=== PATIENT | female | born 1935 | race Caucasian/White ===

== ENCOUNTER 2016-12-26 18:37 | Emergency (ER) | payer MEDICARE ==
[~2016-12-26] VITALS: Ht 170.2 cm; Wt 87.0 kg
[~2016-12-26 18:37] MED LIST: ACET-1757 PO; ALLO100T30 PO; ALPR0.25 PO; AMIT10TA PO; AMOX1TAB64 PO; APIX2.5T PO; APIX5TAB PO; AREDS 2 PO; BACL-19 PO; BIFI4CAP PO; BIMA2.5D LEFTEYE; BRIN10DR LEFTEYE; CALC-138 PO; CARV3.122 PO; CARV6.252 PO; CEFD300C2 PO; COLC0.6T37 PO; COLE5PAC3 PO; DOCU-144 PO; DORZ10DR3 LEFTEYE; Doxycycline Hyclate PO; ERYT1OIN5 EACHEYE; ESTR1TAB17 PO; FERR324T5 PO; GABA600T2 PO; HYDR-3138 PO; HYDR-3240 PO; LACT1CAP15 PO; LANAPROST RIGHTEYE; LEVO125T5 PO; MAGN71.5 PO; OXYC1TAB7 PO; OXYC5TAB3 PO; OXYM5TAB PO; POLY17PO3 PO; POLY17PO5 PO; POTA10TA11 PO; POTA20TA37 PO; PRED20TA PO; PRED5TAB PO; PRED5TAB19 PO; SPIR25TA3 PO; SULF1TAB24 PO; TORS20TA PO; TRAM-28 PO; TRAM50TA2 PO; VITA400C40 PO
[2016-12-26] MEDS ORDERED: METHYLNALTREXONE 12 MG/0.6 ML SQ ONE (19:00)
[2016-12-27] MEDS ORDERED: MAGNESIUM CITRATE 300ML ORAL SOL PO ONE (00:30)
[2016-12-27] MEDS ORDERED: MAGNESIUM CITRATE 300ML ORAL SOL ONE (00:41)
[2016-12-27 01:01] VITALS: BP 126/66
== END 2016-12-27 01:04 | disposition home or self-care (01) ==
LOC: ED 19:15
DX: K59.00 Constipation, unspecified (principal); I10 Essential (primary) hypertension; K21.9 Gastro-esophageal reflux disease without esophagitis; I48.91 Unspecified atrial fibrillation; Z90.49 Acquired absence of other specified parts of digestive tract; Z90.710 Acquired absence of both cervix and uterus; Z90.10 Acquired absence of unspecified breast and nipple; Z88.1 Allergy status to other antibiotic agents; Z88.8 Allergy status to other drugs, medicaments and biological substances
CPT/HCPCS: 74020; 96372

== ENCOUNTER 2017-01-30 14:32 | Emergency (ER) | payer MEDICARE ==
[~2017-01-30] VITALS: Ht 170.2 cm; Wt 88.6 kg
[~2017-01-30 14:32] MED LIST changes: -CEFD300C2 PO; +CEFD300C37 PO
[2017-01-30 16:05] LABS: RAPID INFLUENZA A Negative (Negative); RAPID INFLUENZA B Negative (Negative)
[2017-01-30 16:34] LABS: BLOOD UREA NITROGEN 20 mg/dL (7-18)
[2017-01-30 16:42] LABS: IS PT STATUS REG ER OR PRE ER? YES
[2017-01-30 19:56] VITALS: BP 140/72
== END 2017-01-30 20:40 | disposition home or self-care (01) ==
LOC: ED 20:24
DX: R06.00 Dyspnea, unspecified (principal); R61 Generalized hyperhidrosis; I11.0 Hypertensive heart disease with heart failure; I50.9 Heart failure, unspecified; I25.10 Atherosclerotic heart disease of native coronary artery without angina pectoris; E03.9 Hypothyroidism, unspecified; Z90.49 Acquired absence of other specified parts of digestive tract; Z90.710 Acquired absence of both cervix and uterus; Z88.6 Allergy status to analgesic agent; Z88.1 Allergy status to other antibiotic agents; Z88.8 Allergy status to other drugs, medicaments and biological substances
CPT/HCPCS: 36415; 71020; 71275; 80048; 82040; 83605; 83880; 84145; 84484; 85025; 87040; 87400; 93005; 99285

== ENCOUNTER 2017-02-15 02:07 | Inpatient (IN) | payer MEDICARE ==
[~2017-02-15] VITALS: Ht 170.2 cm; Wt 83.0 kg
[2017-02-15] MEDS ORDERED: COLC0.6T37 PO (02:20)
[2017-02-15] MEDS ORDERED: SODIUM CHLORIDE 0.9% 1,000ML IVBOLUS ONE ×2 (02:30→04:00)
[2017-02-15] MEDS ORDERED: SODIUM CHLORIDE FLUSH 10ML SYR IVF ONE (02:30)
[2017-02-15] MEDS ORDERED: ONDANSETRON 2MG/ML, 2ML IVPush ONE (02:30)
[2017-02-15] MEDS ORDERED: FAMOTIDINE 20 MG/2 ML IVP ONE (02:30)
[2017-02-15] MEDS ORDERED: ACETAMINOPHEN 500 MG TABLET ONE (02:42)
[2017-02-15] MEDS ORDERED: FAMOTIDINE 20 MG/2 ML ONE (02:42)
[2017-02-15] MEDS ORDERED: ONDANSETRON 2MG/ML, 2ML ONE (02:42)
[2017-02-15] MEDS ORDERED: ACETAMINOPHEN 500 MG TABLET PO ONE (03:00)
[2017-02-15 03:11] LABS: ASPARTATE AMINO TRANSFERASE 16 U/L (15-37); BLOOD UREA NITROGEN 23 mg/dL (7-18)
[2017-02-15 03:12] LABS: DIFF TOTAL CELLS COUNTED 100 CELL DIFF
[2017-02-15 03:15] LABS: VERIFY COUNTS? YES
[2017-02-15 03:16] LABS: LARGE PLATELETS 1+
[2017-02-15 03:17] LABS: ANISOCYTOSIS 1+; POLYCHROMASIA 1+
[2017-02-15] MEDS ORDERED: AZITHROMYCIN 500 MG in SODIUM CHLORIDE 0.9% 250 ML IV ONE (03:30)
[2017-02-15] MEDS ORDERED: CEFTRIAXONE PMX 1GM/50ML 50 ML IV ONE (03:30)
[2017-02-15] MEDS ORDERED: OMNIPAQUE 350 MG/ML, 100ML BOTTLE ONE (03:39)
[2017-02-15] MEDS ORDERED: SODIUM CHLORIDE 0.9% 1,000 ML IV ONE (04:17)
[2017-02-15] MEDS ORDERED: CEFTRIAXONE PMX 1GM/50ML 50 ML ONE (04:26)
[2017-02-15] MEDS ORDERED: ONDANSETRON 2MG/ML, 2ML IVPush PRN (05:00)
[2017-02-15] MEDS ORDERED: BISACODYL 10 MG SUPP PR PRN (05:00)
[2017-02-15] MEDS ORDERED: GUAIFENESIN/DM 200-20MG, 10ML UDC PO PRN (05:00)
[2017-02-15] MEDS ORDERED: DOCUSATE 100 MG CAPSULE PO PRN (05:00)
[2017-02-15] MEDS ORDERED: POLYETHYLENE GLYCOL 17 GM PACKET PO PRN (05:00)
[2017-02-15] MEDS: BRINZOLAMIDE LEFTEYE SCH ×2 (09:00→21:00)
[2017-02-15] MEDS ORDERED: DORZOLAMIDE OPHTH 2%, 10ML LEFTEYE SCH (09:00)
[2017-02-15] MEDS ORDERED: CARVEDILOL 6.25 MG TABLET PO SCH ×2 (09:00)
[2017-02-15] MEDS ORDERED: CARVEDILOL MC SCH (09:00)
[2017-02-15] MEDS: CEFTRIAXONE PMX 1GM/50ML 50 ML IV SCH ×2 (11:01→23:37)
[2017-02-15] MEDS: SODIUM CHLORIDE FLUSH 3ML SYRINGE IVF SCH ×2 (11:01→21:00)
[2017-02-15] MEDS: TORSEMIDE 20 MG TABLET PO SCH (11:02)
[2017-02-15] MEDS: COLCHICINE 0.6 MG TABLET PO SCH (11:02)
[2017-02-15] MEDS: APIXABAN 5 MG TABLET PO SCH ×2 (11:02→21:11)
[2017-02-15] MEDS: LEVOTHYROXINE 125 MCG TABLET PO SCH (11:02)
[2017-02-15] MEDS: CARVEDILOL 6.25 MG TABLET PO SCH ×2 (11:03→21:12)
[2017-02-15] MEDS: POTASSIUM CHLORIDE 10 MEQ TABLET.ER PO SCH (11:03)
[2017-02-15] MEDS: GABAPENTIN 300 MG CAPSULE PO SCH ×2 (11:03→21:10)
[2017-02-15] MEDS: BACLOFEN 10 MG TABLET PO SCH ×2 (11:03→21:11)
[2017-02-15] MEDS: MAGNESIUM CHLORIDE 64 MG TABLET.DR PO SCH ×2 (11:03→21:10)
[2017-02-15] MEDS: LACTOBACILLUS CHEW TABLET PO SCH (11:03)
[2017-02-15 13:22] VITALS: BP 97/62
[2017-02-15] MEDS: AZITHROMYCIN 500 MG in SODIUM CHLORIDE 0.9% 250 ML IV SCH (14:33)
[2017-02-15 18:10] VITALS: BP 96/60
[2017-02-15 18:30] VITALS: BP 96/60
[2017-02-15] MEDS: DORZOLAMIDE OPHTH 2%, 10ML LEFTEYE SCH (21:00)
[2017-02-15] MEDS ORDERED: TEMPLATE NON-FORMULARY MED. (Bimatoprost (Lumigan) 1 DROP) LEFTEYE SCH (21:00)
[2017-02-15] MEDS ORDERED: LATANOPROST OPHTH 0.005%, 2.5ML RIGHTEYE SCH (21:00)
[2017-02-15] MEDS: AMITRIPTYLINE 10 MG TABLET PO SCH (21:11)
[2017-02-15 21:20] VITALS: BP 107/69
[2017-02-16 00:09] VITALS: BP 112/71
[2017-02-16 05:59] LABS: BLOOD UREA NITROGEN 24 mg/dL (7-18)
[2017-02-16 08:09] VITALS: BP 150/75
[2017-02-16] MEDS: SODIUM CHLORIDE FLUSH 3ML SYRINGE IVF SCH ×2 (08:12→21:00)
[2017-02-16] MEDS: LEVOTHYROXINE 125 MCG TABLET PO SCH (08:12)
[2017-02-16] MEDS: DORZOLAMIDE OPHTH 2%, 10ML LEFTEYE SCH ×2 (08:12→21:00)
[2017-02-16] MEDS: APIXABAN 5 MG TABLET PO SCH ×2 (08:13→20:59)
[2017-02-16] MEDS: BACLOFEN 10 MG TABLET PO SCH ×2 (08:13→20:59)
[2017-02-16] MEDS: LACTOBACILLUS CHEW TABLET PO SCH (08:13)
[2017-02-16] MEDS: POTASSIUM CHLORIDE 10 MEQ TABLET.ER PO SCH (08:13)
[2017-02-16] MEDS: GABAPENTIN 300 MG CAPSULE PO SCH ×2 (08:14→20:59)
[2017-02-16] MEDS: CARVEDILOL 6.25 MG TABLET PO SCH ×2 (08:14→20:59)
[2017-02-16] MEDS: MAGNESIUM CHLORIDE 64 MG TABLET.DR PO SCH ×2 (08:14→20:58)
[2017-02-16] MEDS: TORSEMIDE 20 MG TABLET PO SCH (08:14)
[2017-02-16] MEDS: COLCHICINE 0.6 MG TABLET PO SCH (08:14)
[2017-02-16] MEDS: BRINZOLAMIDE LEFTEYE SCH ×2 (08:17→21:00)
[2017-02-16] MEDS: CEFTRIAXONE PMX 1GM/50ML 50 ML IV SCH ×2 (11:13→23:38)
[2017-02-16] MEDS: HYDROcodone/APAP 5/325 TABLET PO PRN ×3 (11:43→21:00)
[2017-02-16] MEDS: AZITHROMYCIN 500 MG in SODIUM CHLORIDE 0.9% 250 ML IV SCH (13:38)
[2017-02-16 14:00] VITALS: BP 149/78
[2017-02-16 19:39] VITALS: BP 144/74
[2017-02-16] MEDS: AMITRIPTYLINE 10 MG TABLET PO SCH (20:59)
[2017-02-16] MEDS: TEMPLATE NON-FORMULARY MED. (Bimatoprost (Lumigan) 1 DROP) LEFTEYE SCH (21:00)
[2017-02-16] MEDS: LATANOPROST OPHTH 0.005%, 2.5ML RIGHTEYE SCH (21:00)
[2017-02-17 00:37] VITALS: BP 95/60
[2017-02-17] MEDS: HYDROcodone/APAP 5/325 TABLET PO PRN ×5 (04:46→22:14)
[2017-02-17 07:05] VITALS: BP 109/55
[2017-02-17] MEDS: COLCHICINE 0.6 MG TABLET PO SCH (08:51)
[2017-02-17] MEDS: APIXABAN 5 MG TABLET PO SCH ×2 (08:51→22:13)
[2017-02-17] MEDS: MAGNESIUM CHLORIDE 64 MG TABLET.DR PO SCH ×2 (08:52→22:13)
[2017-02-17] MEDS: LACTOBACILLUS CHEW TABLET PO SCH (08:52)
[2017-02-17] MEDS: TORSEMIDE 20 MG TABLET PO SCH (08:52)
[2017-02-17] MEDS: POTASSIUM CHLORIDE 10 MEQ TABLET.ER PO SCH (08:52)
[2017-02-17] MEDS: GABAPENTIN 300 MG CAPSULE PO SCH ×2 (08:52→22:13)
[2017-02-17] MEDS: CARVEDILOL 6.25 MG TABLET PO SCH ×2 (08:52→22:19)
[2017-02-17] MEDS: LEVOTHYROXINE 125 MCG TABLET PO SCH (08:52)
[2017-02-17] MEDS: BACLOFEN 10 MG TABLET PO SCH ×2 (08:52→22:13)
[2017-02-17] MEDS: SODIUM CHLORIDE FLUSH 3ML SYRINGE IVF SCH ×2 (08:53→21:00)
[2017-02-17] MEDS: BRINZOLAMIDE LEFTEYE SCH ×2 (08:53→21:00)
[2017-02-17] MEDS: DORZOLAMIDE OPHTH 2%, 10ML LEFTEYE SCH ×2 (08:53→21:00)
[2017-02-17] MEDS: CEFTRIAXONE PMX 1GM/50ML 50 ML IV SCH ×2 (12:02→23:30)
[2017-02-17 12:26] VITALS: BP 99/62
[2017-02-17] MEDS: AZITHROMYCIN 500 MG in SODIUM CHLORIDE 0.9% 250 ML IV SCH (14:16)
[2017-02-17 20:00] VITALS: BP 150/79
[2017-02-17] MEDS: TEMPLATE NON-FORMULARY MED. (Bimatoprost (Lumigan) 1 DROP) LEFTEYE SCH (21:00)
[2017-02-17] MEDS: LATANOPROST OPHTH 0.005%, 2.5ML RIGHTEYE SCH (21:00)
[2017-02-17] MEDS: AMITRIPTYLINE 10 MG TABLET PO SCH (22:13)
[2017-02-18 00:51] VITALS: BP 148/66
[2017-02-18] MEDS: HYDROcodone/APAP 5/325 TABLET PO PRN ×6 (03:18→22:45)
[2017-02-18] MEDS ORDERED: CEFTRIAXONE 1,000 MG IM ONE (05:00)
[2017-02-18 07:28] VITALS: BP 157/85
[2017-02-18] MEDS: SODIUM CHLORIDE FLUSH 3ML SYRINGE IVF SCH ×2 (09:00→19:47)
[2017-02-18] MEDS: GABAPENTIN 300 MG CAPSULE PO SCH ×2 (09:00→19:46)
[2017-02-18] MEDS: BRINZOLAMIDE LEFTEYE SCH ×2 (09:00→19:47)
[2017-02-18] MEDS: POTASSIUM CHLORIDE 10 MEQ TABLET.ER PO SCH (09:40)
[2017-02-18] MEDS: CEFDINIR 300 MG CAPSULE PO SCH ×2 (09:40→19:45)
[2017-02-18] MEDS: APIXABAN 5 MG TABLET PO SCH ×2 (09:40→19:46)
[2017-02-18] MEDS: LACTOBACILLUS CHEW TABLET PO SCH (09:40)
[2017-02-18] MEDS: MAGNESIUM CHLORIDE 64 MG TABLET.DR PO SCH ×2 (09:40→19:45)
[2017-02-18] MEDS: TORSEMIDE 20 MG TABLET PO SCH (09:40)
[2017-02-18] MEDS: BACLOFEN 10 MG TABLET PO SCH ×2 (09:40→19:46)
[2017-02-18] MEDS: LEVOTHYROXINE 125 MCG TABLET PO SCH (09:40)
[2017-02-18] MEDS: COLCHICINE 0.6 MG TABLET PO SCH (09:41)
[2017-02-18] MEDS: CARVEDILOL 6.25 MG TABLET PO SCH ×2 (09:41→19:46)
[2017-02-18] MEDS: DORZOLAMIDE OPHTH 2%, 10ML LEFTEYE SCH ×2 (09:42→21:00)
[2017-02-18] MEDS: AZITHROMYCIN 500 MG TABLET PO SCH (09:47)
[2017-02-18 12:05] VITALS: BP 125/73
[2017-02-18] MEDS: GUAIFENESIN/DM 200-20MG, 10ML UDC PO PRN ×2 (14:41→19:45)
[2017-02-18 19:21] VITALS: BP 147/72
[2017-02-18] MEDS: AMITRIPTYLINE 10 MG TABLET PO SCH (19:46)
[2017-02-18] MEDS: TEMPLATE NON-FORMULARY MED. (Bimatoprost (Lumigan) 1 DROP) LEFTEYE SCH (19:46)
[2017-02-18] MEDS: LATANOPROST OPHTH 0.005%, 2.5ML RIGHTEYE SCH (19:47)
[2017-02-19] MEDS: HYDROcodone/APAP 5/325 TABLET PO PRN ×3 (01:11→17:13)
[2017-02-19] MEDS: GUAIFENESIN/DM 200-20MG, 10ML UDC PO PRN ×4 (01:11→21:34)
[2017-02-19 01:23] VITALS: BP 144/71
[2017-02-19 07:45] VITALS: BP 143/75
[2017-02-19] MEDS: SODIUM CHLORIDE FLUSH 3ML SYRINGE IVF SCH ×2 (08:04→21:00)
[2017-02-19] MEDS: DORZOLAMIDE OPHTH 2%, 10ML LEFTEYE SCH ×2 (09:00→21:00)
[2017-02-19] MEDS: AZITHROMYCIN 500 MG TABLET PO SCH (09:00)
[2017-02-19] MEDS: BRINZOLAMIDE LEFTEYE SCH ×2 (09:00→21:00)
[2017-02-19] MEDS: COLCHICINE 0.6 MG TABLET PO SCH (09:51)
[2017-02-19] MEDS: POTASSIUM CHLORIDE 10 MEQ TABLET.ER PO SCH (09:52)
[2017-02-19] MEDS: TORSEMIDE 20 MG TABLET PO SCH (09:52)
[2017-02-19] MEDS: BACLOFEN 10 MG TABLET PO SCH ×2 (09:52→21:19)
[2017-02-19] MEDS: APIXABAN 5 MG TABLET PO SCH ×2 (09:52→21:19)
[2017-02-19] MEDS: LACTOBACILLUS CHEW TABLET PO SCH (09:52)
[2017-02-19] MEDS: GABAPENTIN 300 MG CAPSULE PO SCH ×2 (09:52→21:00)
[2017-02-19] MEDS: MAGNESIUM CHLORIDE 64 MG TABLET.DR PO SCH ×2 (09:53→21:18)
[2017-02-19] MEDS: LEVOTHYROXINE 125 MCG TABLET PO SCH (09:53)
[2017-02-19] MEDS: CEFDINIR 300 MG CAPSULE PO SCH ×2 (09:53→21:19)
[2017-02-19 12:52] LABS: BLOOD UREA NITROGEN 17 mg/dL (7-18)
[2017-02-19 12:58] LABS: ASPARTATE AMINO TRANSFERASE 18 U/L (15-37)
[2017-02-19 13:50] VITALS: BP 136/75
[2017-02-19] MEDS ORDERED: POTASSIUM CHLORIDE 20 MEQ TAB.ER.PRT PO ONE (14:30)
[2017-02-19] MEDS: GUAIFENESIN ER 600 MG TABLET PO SCH ×2 (15:35→21:18)
[2017-02-19] MEDS: SPIRONOLACTONE 25 MG TABLET PO SCH (15:35)
[2017-02-19 18:42] VITALS: BP 161/80
[2017-02-19] MEDS: LATANOPROST OPHTH 0.005%, 2.5ML RIGHTEYE SCH (21:00)
[2017-02-19] MEDS: TEMPLATE NON-FORMULARY MED. (Bimatoprost (Lumigan) 1 DROP) LEFTEYE SCH (21:00)
[2017-02-19] MEDS: AMITRIPTYLINE 10 MG TABLET PO SCH (21:19)
[2017-02-20 01:57] VITALS: BP 115/67
[2017-02-20] MEDS: GUAIFENESIN/DM 200-20MG, 10ML UDC PO PRN ×3 (04:53→15:26)
[2017-02-20 06:15] LABS: BLOOD UREA NITROGEN 16 mg/dL (7-18)
[2017-02-20 07:05] VITALS: BP 160/82
[2017-02-20] MEDS: SODIUM CHLORIDE FLUSH 3ML SYRINGE IVF SCH (08:43)
[2017-02-20] MEDS: COLCHICINE 0.6 MG TABLET PO SCH (08:52)
[2017-02-20] MEDS: SPIRONOLACTONE 25 MG TABLET PO SCH (08:52)
[2017-02-20] MEDS: APIXABAN 5 MG TABLET PO SCH (08:52)
[2017-02-20] MEDS: GUAIFENESIN ER 600 MG TABLET PO SCH (08:52)
[2017-02-20] MEDS: CEFDINIR 300 MG CAPSULE PO SCH (08:53)
[2017-02-20] MEDS: BACLOFEN 10 MG TABLET PO SCH (08:53)
[2017-02-20] MEDS: LACTOBACILLUS CHEW TABLET PO SCH (08:53)
[2017-02-20] MEDS: GABAPENTIN 300 MG CAPSULE PO SCH (08:53)
[2017-02-20] MEDS: MAGNESIUM CHLORIDE 64 MG TABLET.DR PO SCH (08:53)
[2017-02-20] MEDS: TORSEMIDE 20 MG TABLET PO SCH (08:53)
[2017-02-20] MEDS: LEVOTHYROXINE 125 MCG TABLET PO SCH (08:54)
[2017-02-20] MEDS: DORZOLAMIDE OPHTH 2%, 10ML LEFTEYE SCH (08:55)
[2017-02-20] MEDS: BRINZOLAMIDE LEFTEYE SCH (08:55)
[2017-02-20] MEDS: AZITHROMYCIN 500 MG TABLET PO SCH (08:57)
[2017-02-20] MEDS: HYDROcodone/APAP 5/325 TABLET PO PRN ×2 (09:01→15:26)
[2017-02-20] MEDS ORDERED: CEFD300C37 PO (16:12)
[2017-02-20] MEDS ORDERED: SPIR25TA PO (16:12)
== END 2017-02-20 17:41 | disposition home health service (06) | DRG 871 ==
LOC: ED 03:57 → EDIP 04:17 → 4EST 07:06
DX: A41.9 Sepsis, unspecified organism (principal); I50.33 Acute on chronic diastolic (congestive) heart failure; J18.9 Pneumonia, unspecified organism; J96.21 Acute and chronic respiratory failure with hypoxia; D68.69 Other thrombophilia; E44.0 Moderate protein-calorie malnutrition; E03.9 Hypothyroidism, unspecified; G62.9 Polyneuropathy, unspecified; K21.9 Gastro-esophageal reflux disease without esophagitis; I11.0 Hypertensive heart disease with heart failure; I27.2 Other secondary pulmonary hypertension; I25.10 Atherosclerotic heart disease of native coronary artery without angina pectoris; D64.9 Anemia, unspecified; H40.9 Unspecified glaucoma; G89.29 Other chronic pain; M10.9 Gout, unspecified; Z66 Do not resuscitate; M54.9 Dorsalgia, unspecified; I48.2 Chronic atrial fibrillation; Z79.01 Long term (current) use of anticoagulants; I71.2 Thoracic aortic aneurysm, without rupture; Z90.13 Acquired absence of bilateral breasts and nipples; Z90.49 Acquired absence of other specified parts of digestive tract; Z90.710 Acquired absence of both cervix and uterus; Z88.8 Allergy status to other drugs, medicaments and biological substances; Z79.52 Long term (current) use of systemic steroids; Z82.49 Family history of ischemic heart disease and other diseases of the circulatory system; Z80.0 Family history of malignant neoplasm of digestive organs; Z68.28 Body mass index [BMI] 28.0-28.9, adult
CPT/HCPCS: 36415; 71010; 74177; 80048; 80053; 81003; 83605; 83690; 83735; 84145; 85025; 85610; 87040; 87324; 89055; 93005; 96374; 96375; J0456; J0696; J2405; Q9967; J7030; J7050; J7512; S0028

== ENCOUNTER → 2017-03-19 | Outpatient (CLI) | payer MEDICARE ==
[~2017-03-19] MED LIST changes: +SPIR25TA PO
== END | disposition home or self-care (01) ==
LOC: RAD 14:00
PROVIDERS: ATTEND Internal Medicine
DX: R07.9 Chest pain, unspecified (principal)
CPT/HCPCS: 71020

== ENCOUNTER 2017-03-22 20:20 | Emergency (ER) | payer MEDICARE ==
[~2017-03-22] VITALS: Ht 170.2 cm; Wt 87.0 kg
[2017-03-22 20:27] VITALS: BP 178/86
[2017-03-22] MEDS ORDERED: BACITRACIN ZINC OINT 500U/GM, 0.9 GM ONE (20:48)
[2017-03-22] MEDS ORDERED: OXYcodone/APAP 5/325MG TABLET ONE (20:48)
[2017-03-22] MEDS ORDERED: SILVER SULF. CRM 1% , 25GM ONE (20:48)
[2017-03-22] MEDS ORDERED: OXYcodone/APAP 5/325MG TABLET PO ONE (21:00)
[2017-03-22] MEDS ORDERED: SILVER SULF. CRM 1% , 25GM TP ONE (21:00)
== END 2017-03-22 21:11 | disposition home or self-care (01) ==
LOC: ED 21:09
DX: T23.122A Burn of first degree of single left finger (nail) except thumb, initial encounter (principal); K21.9 Gastro-esophageal reflux disease without esophagitis; J96.90 Respiratory failure, unspecified, unspecified whether with hypoxia or hypercapnia; E03.9 Hypothyroidism, unspecified; I25.10 Atherosclerotic heart disease of native coronary artery without angina pectoris; Z90.49 Acquired absence of other specified parts of digestive tract; Z90.710 Acquired absence of both cervix and uterus; Z90.10 Acquired absence of unspecified breast and nipple; X10.2XXA Contact with fats and cooking oils, initial encounter; Y93.89 Activity, other specified; Y92.89 Other specified places as the place of occurrence of the external cause; Y99.8 Other external cause status
CPT/HCPCS: 16020

== ENCOUNTER → 2017-03-25 | Outpatient (CLI) | payer MEDICARE | END | disposition home or self-care (01) | LOC: CVU 13:10 | PROVIDERS: ATTEND Podiatrist Foot & Ankle Surgery | DX: I73.9 Peripheral vascular disease, unspecified (principal); I65.23 Occlusion and stenosis of bilateral carotid arteries; I10 Essential (primary) hypertension; I48.91 Unspecified atrial fibrillation | CPT/HCPCS: 93922; 93925 ==

== ENCOUNTER → 2017-06-10 | Outpatient (CLI) | payer MEDICARE ==
[~2017-06-10] MED LIST changes: -HYDR-3138 PO; +HYDR-3237 PO; -TRAM-28 PO; +TRAM-47 PO; -VITA400C40 PO; +VITA400C43 PO
== END | disposition home or self-care (01) ==
LOC: CFH 11:55
PROVIDERS: ATTEND Nurse Practitioner Family
DX: I48.2 Chronic atrial fibrillation (principal)
CPT/HCPCS: 71020

== ENCOUNTER 2017-07-14 18:52 | Inpatient (IN) | payer MEDICARE ==
[~2017-07-14] VITALS: Ht 170.2 cm; Wt 106.0 kg
[2017-07-14] MEDS ORDERED: HYDROmorphone 1 MG/ML, 1ML ONE ×2 (19:17→22:21)
[2017-07-14] MEDS: HYDROmorphone 1 MG/ML, 1ML IVPush PRN ×2 (19:20→22:25)
[2017-07-14] MEDS ORDERED: PLEASE ENTER HEIGHT AND WEIGHT MC SCH (19:30)
[2017-07-14] MEDS ORDERED: ERYTHROMYCIN EYE EACHEYE (19:38)
[2017-07-14 19:58] LABS: BLOOD UREA NITROGEN 21 mg/dL (7-18)
[2017-07-14 20:01] LABS: HEMATOCRIT 30.4 % (34.6-47.8); HEMOGLOBIN 9.6 g/dL (11.7-16.4)
[2017-07-14] MEDS ORDERED: LIDOCAINE 1%, 20ML ONE (21:05)
[2017-07-14] MEDS ORDERED: SODIUM CHLORIDE 0.9% 1,000 ML IV ONE (21:31)
[2017-07-14] MEDS ORDERED: ONDANSETRON 2MG/ML, 2ML IVPush PRN (22:00)
[2017-07-14] MEDS ORDERED: LACTATED RINGERS 1,000 ML IV SCH (22:00)
[2017-07-14] MEDS ORDERED: hydrALAzine 20 MG/ML, 1ML IVPush PRN (22:00)
[2017-07-14] MEDS ORDERED: DOCUSATE 100 MG CAPSULE PO PRN (22:00)
[2017-07-14] MEDS ORDERED: HYDROmorphone 1 MG/ML, 1ML IVPush PRN (22:00)
[2017-07-14] MEDS ORDERED: ACETAMINOPHEN 325 MG TABLET PO PRN (22:00)
[2017-07-14 22:59] VITALS: BP 129/63
[2017-07-14 23:15] VITALS: BP 129/63
[2017-07-15] MEDS: BRINZOLAMIDE LEFTEYE SCH ×3 (00:04→21:00)
[2017-07-15] MEDS: TEMPLATE NON-FORMULARY MED. (Bimatoprost (Lumigan) 1 DROP) LEFTEYE SCH ×2 (00:04→21:00)
[2017-07-15] MEDS: morphine SULFATE 10 MG/ML, 1ML IVPush PRN ×6 (00:18→14:29)
[2017-07-15] MEDS: OXYcodone IR 5MG TABLET PO PRN ×4 (00:18→14:06)
[2017-07-15] MEDS: AMITRIPTYLINE 10 MG TABLET PO SCH ×2 (01:36→21:00)
[2017-07-15] MEDS: GABAPENTIN 300 MG CAPSULE PO SCH ×3 (01:39→21:00)
[2017-07-15 01:58] VITALS: BP 127/56
[2017-07-15 02:39] LABS: PATH.CAST-FLAG NOT PRESENT; SPERM-FLAG NOT PRESENT; SRC-FLAG NOT PRESENT; XTAL-FLAG NOT PRESENT; YLC-FLAG NOT PRESENT
[2017-07-15 06:02] LABS: BLOOD UREA NITROGEN 20 mg/dL (7-18)
[2017-07-15 06:08] LABS: HEMATOCRIT 24.7 % (34.6-47.8); HEMOGLOBIN 7.8 g/dL (11.7-16.4); WHITE BLOOD COUNT 9.9 x10^3/uL (3.4-10)
[2017-07-15 07:10] VITALS: BP 136/61
[2017-07-15] MEDS ORDERED: POTASSIUM CHLORIDE 10 MEQ TABLET.ER PO SCH (09:00)
[2017-07-15] MEDS: COLCHICINE 0.6 MG TABLET PO SCH (09:00)
[2017-07-15] MEDS ORDERED: APIXABAN 5 MG TABLET PO SCH (09:00)
[2017-07-15] MEDS ORDERED: GABAPENTIN 300 MG CAPSULE PO SCH (09:00)
[2017-07-15] MEDS: LACTULOSE 10 GM/15 ML UDC PO SCH ×2 (09:36→21:00)
[2017-07-15] MEDS: BACLOFEN 10 MG TABLET PO SCH ×2 (09:37→21:00)
[2017-07-15] MEDS: TORSEMIDE 20 MG TABLET PO SCH (09:38)
[2017-07-15] MEDS: LEVOTHYROXINE 125 MCG TABLET PO SCH (09:38)
[2017-07-15] MEDS: SPIRONOLACTONE 25 MG TABLET PO SCH (09:39)
[2017-07-15 11:31] LABS: HEMATOCRIT 26.5 % (34.6-47.8); HEMOGLOBIN 8.4 g/dL (11.7-16.4)
[2017-07-15 13:18] VITALS: BP 126/75
[2017-07-15] MEDS ORDERED: BISACODYL 10 MG SUPP PR PRN (14:30)
[2017-07-15] MEDS ORDERED: POLYETHYLENE GLYCOL 17 GM PACKET PO PRN (14:30)
[2017-07-15] MEDS: POLYETHYLENE GLYCOL 17 GM PACKET PO PRN (14:56)
[2017-07-15] MEDS: ONDANSETRON 2MG/ML, 2ML IVPush PRN (18:40)
[2017-07-15 19:52] VITALS: BP 122/72
[2017-07-15] MEDS: ENOXAPARIN 40 MG/0.4 ML SQ SCH (22:05)
[2017-07-16] MEDS: OXYcodone IR 5MG TABLET PO PRN ×2 (00:58→15:15)
[2017-07-16] MEDS: BACLOFEN 10 MG TABLET PO SCH ×4 (00:58→21:15)
[2017-07-16 02:30] VITALS: BP 167/72
[2017-07-16] MEDS: ONDANSETRON 2MG/ML, 2ML IVPush PRN ×3 (02:43→15:12)
[2017-07-16 07:58] VITALS: BP 128/67
[2017-07-16 08:07] LABS: BLOOD UREA NITROGEN 18 mg/dL (7-18)
[2017-07-16 08:13] LABS: HEMATOCRIT 24.3 % (34.6-47.8); HEMOGLOBIN 7.7 g/dL (11.7-16.4); WHITE BLOOD COUNT 15.6 x10^3/uL (3.4-10)
[2017-07-16] MEDS: BRINZOLAMIDE LEFTEYE SCH ×2 (09:00→21:00)
[2017-07-16] MEDS: SPIRONOLACTONE 25 MG TABLET PO SCH (09:00)
[2017-07-16] MEDS: LEVOTHYROXINE 125 MCG TABLET PO SCH (09:00)
[2017-07-16] MEDS: COLCHICINE 0.6 MG TABLET PO SCH (09:00)
[2017-07-16] MEDS: GABAPENTIN 300 MG CAPSULE PO SCH ×3 (09:00→21:14)
[2017-07-16] MEDS: SODIUM CHLORIDE 0.9% 1,000 ML IV SCH ×2 (10:00→21:11)
[2017-07-16] MEDS ORDERED: METOCLOPRAMIDE 5 MG/ML, 2ML IVPush ONE (10:00)
[2017-07-16] MEDS: LACTULOSE 10 GM/15 ML UDC PO SCH ×3 (12:55→21:13)
[2017-07-16] MEDS: TORSEMIDE 20 MG TABLET PO SCH (12:56)
[2017-07-16] MEDS: SENNA/DOCUSATE TABLET PO SCH (12:56)
[2017-07-16 16:31] VITALS: BP 121/68
[2017-07-16 18:48] VITALS: BP 137/76
[2017-07-16] MEDS ORDERED: METOCLOPRAMIDE 5 MG/ML, 2ML IVPush PRN (20:00)
[2017-07-16] MEDS: TEMPLATE NON-FORMULARY MED. (Bimatoprost (Lumigan) 1 DROP) LEFTEYE SCH (21:00)
[2017-07-16] MEDS: ENOXAPARIN 40 MG/0.4 ML SQ SCH (21:13)
[2017-07-16] MEDS: AMITRIPTYLINE 10 MG TABLET PO SCH (21:13)
[2017-07-17 03:50] VITALS: BP 140/75
[2017-07-17] MEDS: OXYcodone IR 5MG TABLET PO PRN ×5 (04:15→22:10)
[2017-07-17] MEDS: SODIUM CHLORIDE 0.9% 1,000 ML IV SCH (06:31)
[2017-07-17] MEDS ORDERED: MORPHINE SULFATE 4 MG/ML, 1ML ONE (06:33)
[2017-07-17] MEDS: morphine SULFATE 10 MG/ML, 1ML IVPush PRN (06:35)
[2017-07-17 06:46] LABS: WHITE BLOOD COUNT 7.8 x10^3/uL (3.4-10)
[2017-07-17 06:48] LABS: HEMATOCRIT 20.5 % (34.6-47.8); HEMOGLOBIN 6.7 g/dL (11.7-16.4)
[2017-07-17 06:51] LABS: ASPARTATE AMINO TRANSFERASE 14 U/L (15-37); BLOOD UREA NITROGEN 21 mg/dL (7-18)
[2017-07-17 07:28] LABS: ANISOCYTOSIS 1+; HYPOCHROMIA 1+; MICROCYTOSIS 1+; OVALOCYTES 1+; POIKILOCYTOSIS 1+; POLYCHROMASIA 1+
[2017-07-17 07:30] LABS: LARGE PLATELETS 1+
[2017-07-17 08:00] VITALS: BP 127/74
[2017-07-17 08:17] LABS: FERRITIN 59.9 ng/mL (8-252)
[2017-07-17] MEDS: CEFTRIAXONE PMX 1GM/50ML 50 ML IV SCH (08:56)
[2017-07-17] MEDS: SPIRONOLACTONE 25 MG TABLET PO SCH (08:56)
[2017-07-17] MEDS: COLCHICINE 0.6 MG TABLET PO SCH (08:57)
[2017-07-17] MEDS: TORSEMIDE 20 MG TABLET PO SCH (08:57)
[2017-07-17] MEDS: LACTULOSE 10 GM/15 ML UDC PO SCH ×2 (08:58→22:04)
[2017-07-17] MEDS: GABAPENTIN 300 MG CAPSULE PO SCH ×2 (08:58→22:05)
[2017-07-17] MEDS: BACLOFEN 10 MG TABLET PO SCH ×2 (08:58→22:05)
[2017-07-17] MEDS: LEVOTHYROXINE 125 MCG TABLET PO SCH (08:59)
[2017-07-17] MEDS: SENNA/DOCUSATE TABLET PO SCH (08:59)
[2017-07-17] MEDS: BRINZOLAMIDE LEFTEYE SCH ×2 (09:00→21:00)
[2017-07-17 11:57] VITALS: BP 145/68
[2017-07-17] MEDS: BISACODYL 10 MG SUPP PR SCH ×2 (13:08→22:04)
[2017-07-17] MEDS: IRON SUCROSE COMPLEX 100MG/5ML IV SCH (13:08)
[2017-07-17] MEDS: METOCLOPRAMIDE 5 MG/ML, 2ML IVPush SCH ×2 (13:08→18:28)
[2017-07-17] MEDS: MULTIVITAMINS/MINERALS TABLET PO SCH (13:08)
[2017-07-17 14:31] VITALS: BP 128/72
[2017-07-17] MEDS: ASCORBIC ACID 500 MG TABLET PO SCH (17:17)
[2017-07-17] MEDS: ONDANSETRON 2MG/ML, 2ML IVPush PRN ×2 (17:21→23:30)
[2017-07-17 19:24] VITALS: BP 138/74
[2017-07-17] MEDS: TEMPLATE NON-FORMULARY MED. (Bimatoprost (Lumigan) 1 DROP) LEFTEYE SCH (21:00)
[2017-07-17] MEDS: AMITRIPTYLINE 10 MG TABLET PO SCH (22:05)
[2017-07-17] MEDS: ENOXAPARIN 40 MG/0.4 ML SQ SCH (22:05)
[2017-07-17] MEDS: POLYETHYLENE GLYCOL 17 GM PACKET PO PRN (23:30)
[2017-07-18 00:09] VITALS: BP 143/73
[2017-07-18] MEDS: METOCLOPRAMIDE 5 MG/ML, 2ML IVPush SCH ×2 (01:04→06:44)
[2017-07-18] MEDS: OXYcodone IR 5MG TABLET PO PRN ×4 (02:20→17:47)
[2017-07-18 04:54] LABS: BLOOD UREA NITROGEN 18 mg/dL (7-18)
[2017-07-18 04:56] LABS: WHITE BLOOD COUNT 9.6 x10^3/uL (3.4-10)
[2017-07-18 04:57] LABS: HEMATOCRIT 21.6 % (34.6-47.8); HEMOGLOBIN 6.9 g/dL (11.7-16.4)
[2017-07-18 05:49] LABS: DIFF TOTAL CELLS COUNTED 100 CELL DIFF
[2017-07-18 05:51] LABS: ANISOCYTOSIS 1+; MICROCYTOSIS 1+; OVALOCYTES 1+; POLYCHROMASIA 1+; VERIFY COUNTS? YES
[2017-07-18 05:52] LABS: LARGE PLATELETS 1+
[2017-07-18 05:57] LABS: OCCBLD OBC PASS
[2017-07-18 06:56] VITALS: BP 137/72
[2017-07-18] MEDS: ASCORBIC ACID 500 MG TABLET PO SCH ×2 (08:05→17:47)
[2017-07-18] MEDS: GABAPENTIN 300 MG CAPSULE PO SCH ×2 (08:05→21:06)
[2017-07-18] MEDS: CEFTRIAXONE PMX 1GM/50ML 50 ML IV SCH (08:05)
[2017-07-18] MEDS: COLCHICINE 0.6 MG TABLET PO SCH (08:06)
[2017-07-18] MEDS: SPIRONOLACTONE 25 MG TABLET PO SCH (08:06)
[2017-07-18] MEDS: MULTIVITAMINS/MINERALS TABLET PO SCH (08:06)
[2017-07-18] MEDS: LEVOTHYROXINE 125 MCG TABLET PO SCH (08:06)
[2017-07-18] MEDS: SENNA/DOCUSATE TABLET PO SCH (08:06)
[2017-07-18] MEDS: BACLOFEN 10 MG TABLET PO SCH ×2 (08:06→21:06)
[2017-07-18] MEDS: TORSEMIDE 20 MG TABLET PO SCH (08:07)
[2017-07-18] MEDS: LACTULOSE 10 GM/15 ML UDC PO SCH ×2 (08:07→21:06)
[2017-07-18] MEDS: IRON SUCROSE COMPLEX 100MG/5ML IV SCH (08:07)
[2017-07-18] MEDS: BISACODYL 10 MG SUPP PR SCH ×2 (08:07→21:07)
[2017-07-18] MEDS: ONDANSETRON 2MG/ML, 2ML IVPush PRN (08:09)
[2017-07-18] MEDS: BRINZOLAMIDE LEFTEYE SCH ×2 (08:16→21:05)
[2017-07-18 13:19] VITALS: BP 133/80
[2017-07-18] MEDS: DIPHENHYDRAMINE/ZINC CRM 2%, 30GM TP PRN ×3 (13:45→21:27)
[2017-07-18 18:54] VITALS: BP 133/76
[2017-07-18] MEDS: TEMPLATE NON-FORMULARY MED. (Bimatoprost (Lumigan) 1 DROP) LEFTEYE SCH (21:05)
[2017-07-18] MEDS: AMITRIPTYLINE 10 MG TABLET PO SCH (21:06)
[2017-07-18] MEDS: ENOXAPARIN 40 MG/0.4 ML SQ SCH (21:07)
[2017-07-19 00:57] VITALS: BP 142/80
[2017-07-19] MEDS: OXYcodone IR 5MG TABLET PO PRN ×2 (03:00→07:04)
[2017-07-19 05:26] LABS: BLOOD UREA NITROGEN 17 mg/dL (7-18)
[2017-07-19 06:55] VITALS: BP 151/81
[2017-07-19 08:24] LABS: HEMOGLOBIN 7.2 g/dL (11.7-16.4); WHITE BLOOD COUNT 8.6 x10^3/uL (3.4-10)
[2017-07-19 08:41] LABS: HEMATOCRIT 22.7 % (34.6-47.8)
[2017-07-19] MEDS: COLCHICINE 0.6 MG TABLET PO SCH (09:07)
[2017-07-19] MEDS: CEFTRIAXONE PMX 1GM/50ML 50 ML IV SCH (09:07)
[2017-07-19] MEDS: SPIRONOLACTONE 25 MG TABLET PO SCH (09:07)
[2017-07-19] MEDS: SENNA/DOCUSATE TABLET PO SCH (09:08)
[2017-07-19] MEDS: IRON SUCROSE COMPLEX 100MG/5ML IV SCH (09:09)
[2017-07-19] MEDS: BACLOFEN 10 MG TABLET PO SCH ×2 (09:12→21:46)
[2017-07-19] MEDS: GABAPENTIN 300 MG CAPSULE PO SCH ×2 (09:12→21:46)
[2017-07-19] MEDS: TORSEMIDE 20 MG TABLET PO SCH (09:12)
[2017-07-19] MEDS: LACTULOSE 10 GM/15 ML UDC PO SCH ×2 (09:14→21:46)
[2017-07-19] MEDS: ASCORBIC ACID 500 MG TABLET PO SCH ×2 (09:14→17:00)
[2017-07-19] MEDS: MULTIVITAMINS/MINERALS TABLET PO SCH (09:14)
[2017-07-19] MEDS: LEVOTHYROXINE 125 MCG TABLET PO SCH (09:14)
[2017-07-19] MEDS: morphine SULFATE 10 MG/ML, 1ML IVPush PRN (10:22)
[2017-07-19] MEDS: BRINZOLAMIDE LEFTEYE SCH ×2 (11:00→21:49)
[2017-07-19 11:59] VITALS: BP 129/63
[2017-07-19] MEDS ORDERED: FENTANYL PF 100 MCG/2ML ONE (12:48)
[2017-07-19] MEDS ORDERED: MIDAZOLAM 1 MG/ML, 2ML ONE (12:48)
[2017-07-19] MEDS ORDERED: LIDOCAINE/PF 1%, 30ML ONE (13:40)
[2017-07-19] MEDS ORDERED: BUPIVACAINE/PF 0.5% ONE (13:40)
[2017-07-19] MEDS ORDERED: BUPIVACAINE/PF 0.25% ONE (13:40)
[2017-07-19] MEDS ORDERED: LORazepam 2 MG/ML, 1ML IVPush PRN (15:00)
[2017-07-19] MEDS ORDERED: FENTANYL PF 100 MCG/2ML IV PRN (15:00)
[2017-07-19] MEDS ORDERED: HYDROmorphone 1 MG/ML, 1ML IV PRN (15:00)
[2017-07-19] MEDS ORDERED: PROMETHAZINE 25 MG/ML, 1ML IV PRN (15:00)
[2017-07-19] MEDS ORDERED: LABETALOL 5MG/ML, 20ML IV PRN (15:00)
[2017-07-19] MEDS ORDERED: ONDANSETRON 2MG/ML, 2ML IVPush PRN (15:00)
[2017-07-19] MEDS ORDERED: ALBUTEROL/IPRATROPIUM 2.5MG/0.5MG, 3 ML NPPB PRN (15:00)
[2017-07-19] MEDS ORDERED: ACETAMINOPHEN 325 MG TABLET PO PRN (15:00)
[2017-07-19] MEDS ORDERED: OXYcodone 5 MG/5 ML ORAL.SOL UDC PO PRN (15:00)
[2017-07-19] MEDS ORDERED: MEPERIDINE/PF 25MG/0.5ML IVPush PRN (15:00)
[2017-07-19] MEDS ORDERED: MIDAZOLAM 1 MG/ML, 2ML IV PRN (15:00)
[2017-07-19] MEDS ORDERED: hydrALAzine 20 MG/ML, 1ML IV PRN (15:00)
[2017-07-19] MEDS ORDERED: PROPOFOL 10 MG/ML, 20ML ONE (15:17)
[2017-07-19] MEDS ORDERED: DEXAMETHASONE 4 MG/ML, 1ML ONE (15:17)
[2017-07-19] MEDS ORDERED: CEFAZOLIN 1,000 MG ONE (15:17)
[2017-07-19] MEDS ORDERED: ONDANSETRON 2MG/ML, 2ML ONE (15:17)
[2017-07-19 16:45] VITALS: BP 126/75
[2017-07-19 19:50] VITALS: BP 134/60
[2017-07-19] MEDS: AMITRIPTYLINE 10 MG TABLET PO SCH (21:46)
[2017-07-19] MEDS: ENOXAPARIN 40 MG/0.4 ML SQ SCH (21:48)
[2017-07-19] MEDS: TEMPLATE NON-FORMULARY MED. (Bimatoprost (Lumigan) 1 DROP) LEFTEYE SCH (21:48)
[2017-07-19 23:17] VITALS: BP 115/68
[2017-07-20 03:11] VITALS: BP 137/77
[2017-07-20] MEDS: OXYcodone IR 5MG TABLET PO PRN ×5 (03:48→23:21)
[2017-07-20 05:28] LABS: BLOOD UREA NITROGEN 18 mg/dL (7-18)
[2017-07-20 05:33] LABS: WHITE BLOOD COUNT 8.3 x10^3/uL (3.4-10)
[2017-07-20 05:54] LABS: HEMATOCRIT 19.2 % (34.6-47.8); HEMOGLOBIN 6.2 g/dL (11.7-16.4)
[2017-07-20] MEDS: ENOXAPARIN 40 MG/0.4 ML SQ SCH (05:58)
[2017-07-20 06:21] LABS: DIFF TOTAL CELLS COUNTED 100 CELL DIFF
[2017-07-20 06:30] LABS: VERIFY COUNTS? YES
[2017-07-20 06:32] LABS: ANISOCYTOSIS 1+
[2017-07-20 06:33] LABS: MICROCYTOSIS 1+; OVALOCYTES 2+; POLYCHROMASIA 1+
[2017-07-20 07:00] VITALS: BP 115/73
[2017-07-20] MEDS: GABAPENTIN 300 MG CAPSULE PO SCH ×2 (08:39→20:11)
[2017-07-20] MEDS: ASCORBIC ACID 500 MG TABLET PO SCH ×2 (08:39→16:16)
[2017-07-20] MEDS: MULTIVITAMINS/MINERALS TABLET PO SCH (08:39)
[2017-07-20] MEDS: CEFTRIAXONE PMX 1GM/50ML 50 ML IV SCH (08:39)
[2017-07-20] MEDS: LACTULOSE 10 GM/15 ML UDC PO SCH ×2 (08:40→20:11)
[2017-07-20] MEDS: SENNA/DOCUSATE TABLET PO SCH (08:40)
[2017-07-20] MEDS: IRON SUCROSE COMPLEX 100MG/5ML IV SCH (08:40)
[2017-07-20] MEDS: TORSEMIDE 20 MG TABLET PO SCH (08:40)
[2017-07-20] MEDS: BACLOFEN 10 MG TABLET PO SCH ×2 (08:41→20:11)
[2017-07-20] MEDS: POLYETHYLENE GLYCOL 17 GM PACKET PO PRN (08:41)
[2017-07-20] MEDS: COLCHICINE 0.6 MG TABLET PO SCH (08:41)
[2017-07-20] MEDS: LEVOTHYROXINE 125 MCG TABLET PO SCH (08:43)
[2017-07-20] MEDS: SPIRONOLACTONE 25 MG TABLET PO SCH (12:15)
[2017-07-20] MEDS: BRINZOLAMIDE LEFTEYE SCH ×2 (12:18→20:12)
[2017-07-20 12:48] LABS: HEMATOCRIT 20.5 % (34.6-47.8); HEMOGLOBIN 6.4 g/dL (11.7-16.4)
[2017-07-20 13:10] VITALS: BP 132/70
[2017-07-20] MEDS ORDERED: DARBEPOETIN 40 MCG/ML SQ SCH (16:00)
[2017-07-20] MEDS: AMITRIPTYLINE 10 MG TABLET PO SCH (20:11)
[2017-07-20] MEDS: DIPHENHYDRAMINE/ZINC CRM 2%, 30GM TP PRN (20:11)
[2017-07-20] MEDS: TEMPLATE NON-FORMULARY MED. (Bimatoprost (Lumigan) 1 DROP) LEFTEYE SCH (20:12)
[2017-07-20 20:31] VITALS: BP 122/50
[2017-07-20] MEDS ORDERED: POLYETHYLENE GLYCOL 17 GM PACKET PO PRN (21:00)
[2017-07-20] MEDS ORDERED: morphine SULFATE 10 MG/ML, 1ML IVPush PRN (21:00)
[2017-07-20] MEDS ORDERED: ACETAMINOPHEN 325 MG TABLET PO PRN (21:00)
[2017-07-20] MEDS ORDERED: hydrALAzine 20 MG/ML, 1ML IVPush PRN (21:00)
[2017-07-20] MEDS ORDERED: METOCLOPRAMIDE 5 MG/ML, 2ML IVPush PRN (21:00)
[2017-07-21 02:19] VITALS: BP 116/46
[2017-07-21] MEDS: OXYcodone IR 5MG TABLET PO PRN ×4 (03:21→18:20)
[2017-07-21 05:12] LABS: BLOOD UREA NITROGEN 23 mg/dL (7-18)
[2017-07-21 05:12] LABS: WHITE BLOOD COUNT 11.3 x10^3/uL (3.4-10)
[2017-07-21 05:17] LABS: HEMOGLOBIN 6.3 g/dL (11.7-16.4)
[2017-07-21 08:22] VITALS: BP 131/77
[2017-07-21] MEDS: COLCHICINE 0.6 MG TABLET PO SCH (08:30)
[2017-07-21] MEDS: IRON SUCROSE COMPLEX 100MG/5ML IV SCH (08:30)
[2017-07-21] MEDS: LACTULOSE 10 GM/15 ML UDC PO SCH ×2 (08:30→21:49)
[2017-07-21] MEDS: CEFTRIAXONE PMX 1GM/50ML 50 ML IV SCH (08:30)
[2017-07-21] MEDS: SPIRONOLACTONE 25 MG TABLET PO SCH (08:31)
[2017-07-21] MEDS: SENNA/DOCUSATE TABLET PO SCH (08:31)
[2017-07-21] MEDS: LEVOTHYROXINE 125 MCG TABLET PO SCH (08:31)
[2017-07-21] MEDS: BACLOFEN 10 MG TABLET PO SCH ×2 (08:31→21:49)
[2017-07-21] MEDS: GABAPENTIN 300 MG CAPSULE PO SCH ×2 (08:31→21:49)
[2017-07-21] MEDS: MULTIVITAMINS/MINERALS TABLET PO SCH (08:31)
[2017-07-21] MEDS: BRINZOLAMIDE LEFTEYE SCH ×2 (08:32→21:00)
[2017-07-21] MEDS: ENOXAPARIN 40 MG/0.4 ML SQ SCH (08:33)
[2017-07-21] MEDS: TORSEMIDE 20 MG TABLET PO SCH (08:33)
[2017-07-21] MEDS: ASCORBIC ACID 500 MG TABLET PO SCH ×2 (08:33→16:44)
[2017-07-21 14:35] VITALS: BP 126/58
[2017-07-21 20:12] VITALS: BP 126/51
[2017-07-21] MEDS: TEMPLATE NON-FORMULARY MED. (Bimatoprost (Lumigan) 1 DROP) LEFTEYE SCH (21:00)
[2017-07-21] MEDS: AMITRIPTYLINE 10 MG TABLET PO SCH (21:49)
[2017-07-22] MEDS: OXYcodone IR 5MG TABLET PO PRN ×5 (00:37→23:33)
[2017-07-22 01:39] VITALS: BP 147/73
[2017-07-22 07:18] VITALS: BP 139/63
[2017-07-22] MEDS: CEFTRIAXONE PMX 1GM/50ML 50 ML IV SCH (07:36)
[2017-07-22] MEDS: TORSEMIDE 20 MG TABLET PO SCH (08:10)
[2017-07-22] MEDS: SPIRONOLACTONE 25 MG TABLET PO SCH (08:10)
[2017-07-22] MEDS: BACLOFEN 10 MG TABLET PO SCH ×2 (08:10→22:57)
[2017-07-22] MEDS: COLCHICINE 0.6 MG TABLET PO SCH (08:10)
[2017-07-22] MEDS: GABAPENTIN 300 MG CAPSULE PO SCH ×2 (08:10→22:57)
[2017-07-22] MEDS: LEVOTHYROXINE 125 MCG TABLET PO SCH (08:10)
[2017-07-22] MEDS: SENNA/DOCUSATE TABLET PO SCH (08:10)
[2017-07-22] MEDS: MULTIVITAMINS/MINERALS TABLET PO SCH (08:10)
[2017-07-22] MEDS: BRINZOLAMIDE LEFTEYE SCH ×2 (08:11→21:00)
[2017-07-22] MEDS: LACTULOSE 10 GM/15 ML UDC PO SCH ×2 (08:11→22:57)
[2017-07-22] MEDS: ASCORBIC ACID 500 MG TABLET PO SCH ×2 (08:11→16:55)
[2017-07-22 11:30] LABS: OCCBLD OBC PASS
[2017-07-22 13:01] VITALS: BP 112/52
[2017-07-22 18:47] VITALS: BP 123/63
[2017-07-22] MEDS: TEMPLATE NON-FORMULARY MED. (Bimatoprost (Lumigan) 1 DROP) LEFTEYE SCH (21:00)
[2017-07-22] MEDS: AMITRIPTYLINE 10 MG TABLET PO SCH (22:56)
[2017-07-23 01:23] VITALS: BP 110/63
[2017-07-23] MEDS ORDERED: POLY17PO5 PO (06:43)
[2017-07-23] MEDS ORDERED: ASCO500T6 PO (06:43)
[2017-07-23] MEDS ORDERED: LACT10SO5 PO (06:43)
[2017-07-23] MEDS ORDERED: MULT-484 PO (06:43)
[2017-07-23] MEDS ORDERED: SENN1TAB7 PO (06:43)
[2017-07-23] MEDS ORDERED: DIPH28CR5 TP (06:43)
[2017-07-23] MEDS ORDERED: OXYC5TAB3 PO (06:43)
[2017-07-23 07:15] VITALS: BP 117/64
[2017-07-23 07:35] VITALS: BP 150/61
[2017-07-23] MEDS: OXYcodone IR 5MG TABLET PO PRN ×2 (07:42→11:48)
[2017-07-23] MEDS: LACTULOSE 10 GM/15 ML UDC PO SCH (07:42)
[2017-07-23] MEDS: MULTIVITAMINS/MINERALS TABLET PO SCH (07:42)
[2017-07-23] MEDS: ASCORBIC ACID 500 MG TABLET PO SCH (07:42)
[2017-07-23] MEDS: GABAPENTIN 300 MG CAPSULE PO SCH (07:43)
[2017-07-23] MEDS: BACLOFEN 10 MG TABLET PO SCH (07:43)
[2017-07-23] MEDS: COLCHICINE 0.6 MG TABLET PO SCH (07:43)
[2017-07-23] MEDS: TORSEMIDE 20 MG TABLET PO SCH (07:43)
[2017-07-23] MEDS: LEVOTHYROXINE 125 MCG TABLET PO SCH (07:43)
[2017-07-23] MEDS: SPIRONOLACTONE 25 MG TABLET PO SCH (07:43)
[2017-07-23] MEDS: SENNA/DOCUSATE TABLET PO SCH (07:43)
[2017-07-23] MEDS: BRINZOLAMIDE LEFTEYE SCH (09:00)
[2017-07-23 12:37] VITALS: BP 138/70
== END 2017-07-23 13:40 | DRG 492 ==
LOC: ED 21:30 → EDIP 21:31 → SUATTDRO 21:39 → ED 22:07 → 4NOR 22:50
PROVIDERS: ADMIT Hospitalist; ATTEND Internal Medicine
PROC: 0QSK04Z Reposition Left Fibula with Internal Fixation Device, Open Approach (ICD-10-PCS; principal; 2017-07-14)
PROC: 0QSH04Z Reposition Left Tibia with Internal Fixation Device, Open Approach (ICD-10-PCS; 2017-07-14)
PROC: 0SSG04Z Reposition Left Ankle Joint with Internal Fixation Device, Open Approach (ICD-10-PCS; 2017-07-14)
DX: S82.852A Displaced trimalleolar fracture of left lower leg, initial encounter for closed fracture (principal); E43 Unspecified severe protein-calorie malnutrition; J96.11 Chronic respiratory failure with hypoxia; D68.59 Other primary thrombophilia; I27.20 Pulmonary hypertension, unspecified; C43.9 Malignant melanoma of skin, unspecified; I50.32 Chronic diastolic (congestive) heart failure; I11.0 Hypertensive heart disease with heart failure; I38 Endocarditis, valve unspecified; K56.7 Ileus, unspecified; N39.0 Urinary tract infection, site not specified; I48.2 Chronic atrial fibrillation; B96.20 Unspecified Escherichia coli [E. coli] as the cause of diseases classified elsewhere; D50.9 Iron deficiency anemia, unspecified; E03.9 Hypothyroidism, unspecified; E66.9 Obesity, unspecified; F41.1 Generalized anxiety disorder; G89.29 Other chronic pain; H40.9 Unspecified glaucoma; I25.10 Atherosclerotic heart disease of native coronary artery without angina pectoris; J44.9 Chronic obstructive pulmonary disease, unspecified; K21.9 Gastro-esophageal reflux disease without esophagitis; M10.9 Gout, unspecified; M31.6 Other giant cell arteritis; R62.7 Adult failure to thrive; Z53.1 Procedure and treatment not carried out because of patient's decision for reasons of belief and group pressure; Z68.36 Body mass index [BMI] 36.0-36.9, adult; Z79.01 Long term (current) use of anticoagulants; Z79.899 Other long term (current) drug therapy; Z80.0 Family history of malignant neoplasm of digestive organs; Z85.820 Personal history of malignant melanoma of skin; Z90.13 Acquired absence of bilateral breasts and nipples; Z99.81 Dependence on supplemental oxygen; Z98.49 Cataract extraction status, unspecified eye; Z90.49 Acquired absence of other specified parts of digestive tract; Z90.710 Acquired absence of both cervix and uterus; Z88.6 Allergy status to analgesic agent; Z88.1 Allergy status to other antibiotic agents; Z88.8 Allergy status to other drugs, medicaments and biological substances; W01.0XXA Fall on same level from slipping, tripping and stumbling without subsequent striking against object, initial encounter; Y93.89 Activity, other specified; Y92.091 Bathroom in other non-institutional residence as the place of occurrence of the external cause; Y99.8 Other external cause status
CPT/HCPCS: 36415; 70450; 71010; 74000; 80048; 80053; 81001; 82040; 82272; 82728; 83540; 83550; 83735; 84100; 85014; 85018; 85025; 85610; 86850; 86900; 86923; 87077; 87086; 87186; 99285; C1713; J0690; J0696; J0881; J1100; J1170; J1650; J1756; J2250; J2405; J2704; J3010; J3490; J2270; J2765; J7030; J7120; J7512

== ENCOUNTER 2017-09-23 11:07 | Emergency (ER) | payer MEDICARE ==
[~2017-09-23] VITALS: Ht 170.2 cm; Wt 95.0 kg
[~2017-09-23 11:07] MED LIST changes: +ASCO500T6 PO; +DIPH28CR5 TP; +ERYTHROMYCIN EYE EACHEYE; +LACT10SO5 PO; +MULT-484 PO; +SENN1TAB7 PO
[2017-09-23] MEDS ORDERED: METHYLNALTREXONE 12 MG/0.6 ML SQ ONE (11:30)
[2017-09-23] MEDS ORDERED: MORP15TA3 PO (11:39)
[2017-09-23] MEDS ORDERED: PRED10TA PO (11:39)
[2017-09-23] MEDS ORDERED: POTA20TA14 PO (11:39)
[2017-09-23] MEDS ORDERED: PINK LADY ENEMA 1,000 ML PR ONE (12:00)
[2017-09-23 13:33] VITALS: BP 138/66
== END 2017-09-23 13:35 | disposition home or self-care (01) ==
LOC: ED 13:03
DX: K59.00 Constipation, unspecified (principal); J44.9 Chronic obstructive pulmonary disease, unspecified; K21.9 Gastro-esophageal reflux disease without esophagitis; I11.9 Hypertensive heart disease without heart failure; I25.10 Atherosclerotic heart disease of native coronary artery without angina pectoris; E03.9 Hypothyroidism, unspecified; I48.91 Unspecified atrial fibrillation
CPT/HCPCS: 74000; 96372

== ENCOUNTER 2017-09-25 07:08 | Inpatient (IN) | payer MEDICARE ==
[2017-09-25] VITALS (8 sets, daily range): BP systolic 103–120; BP diastolic 65–70
[~2017-09-25] VITALS: Ht 170.2 cm; Wt 100.9 kg
[~2017-09-25 07:08] MED LIST changes: +MORP15TA3 PO; +POTA20TA14 PO; +PRED10TA PO
[2017-09-25] MEDS ORDERED: ONDANSETRON 2MG/ML, 2ML IVPush ONE (07:30)
[2017-09-25] MEDS ORDERED: CEFAZOLIN PMX 2GM/50ML 50 ML IV ONE (07:30)
[2017-09-25] MEDS ORDERED: SODIUM CHLORIDE FLUSH 10ML SYR IVF ONE (07:30)
[2017-09-25] MEDS: MORPHINE SULFATE 4 MG/ML, 1ML IVPush PRN ×2 (07:35→09:56)
[2017-09-25] MEDS ORDERED: MORPHINE SULFATE 4 MG/ML, 1ML ONE ×3 (07:35→12:47)
[2017-09-25] MEDS ORDERED: ONDANSETRON 2MG/ML, 2ML ONE ×2 (07:35→15:07)
[2017-09-25 07:43] LABS: BASOPHILS # (AUTO) 0.24 x10^3/uL (0-0.1); BASOPHILS % (AUTO) 2 % (0-1); EOSINOPHILS # (AUTO) 0.03 x10^3/uL (0-0.4); EOSINOPHILS % (AUTO) 0 % (1-7); LYMPHOCYTES # (AUTO) 1.62 x10^3/uL (1-3.4); LYMPHOCYTES % (AUTO) 13 % (22-44); MD NO; MEAN CORPUSCULAR HEMOGLOBIN 28.3 pg (27.0-34.8); MEAN CORPUSCULAR HGB CONC 32.6 g/dL (32.4-35.8); MEAN PLATELET VOLUME 10.7 fL (7.4-10.4); MONOCYTES # (AUTO) 0.68 x10^3/uL (0.2-0.8); MONOCYTES % (AUTO) 5 % (2-9); NEUTROPHILS % (AUTO) 80 % (42-75); PLATELET COUNT 130 x10^3/uL (130-400); RED BLOOD COUNT 3.62 x10^6/uL (3.82-5.3); RED CELL DISTRIBUTION WIDTH 18.3 % (9.6-15.2)
[2017-09-25 07:50] LABS: INTERNATIONAL NORMALIZED RATIO 1.21 (0.93-1.1); PROTHROMBIN TIME 12.4 Seconds (9.6-11.5)
[2017-09-25 07:54] LABS: ALANINE AMINOTRANSFERASE 21 U/L (12-78); ALBUMIN 3.2 g/dL (3.4-5.0); ANION GAP 6 mmol/L (5-15); CALCIUM 8.5 mg/dL (8.5-10.1); CHLORIDE 101 mmol/L (98-107); CREATININE 1.59 mg/dL (0.55-1.02)
[2017-09-25 07:56] LABS: ALKALINE PHOSPHATASE 111 U/L (45-117); BILIRUBIN,TOTAL 0.8 mg/dL (0.2-1.0); TOTAL PROTEIN 6.9 g/dL (6.4-8.2)
[2017-09-25] MEDS ORDERED: SODIUM CHLORIDE 0.9% 1,000ML IVBOLUS ONE (08:00)
[2017-09-25] MEDS ORDERED: ACETAMINOPHEN 325 MG TABLET PO ONE (08:00)
[2017-09-25] MEDS ORDERED: PROPOFOL 10 MG/ML, 20ML ONE ×2 (09:09→15:07)
[2017-09-25] MEDS ORDERED: KETAMINE 10 MG/ML, 20ML ONE (09:10)
[2017-09-25] MEDS ORDERED: PROPOFOL 10 MG/ML, 20ML IVP ONE (09:30)
[2017-09-25] MEDS ORDERED: KETAMINE 100 MG/ML, 5ML IV ONE (09:30)
[2017-09-25] MEDS: SODIUM CHLORIDE 0.9% 1,000 ML IV SCH ×2 (09:33→21:48)
[2017-09-25] MEDS ORDERED: ONDANSETRON 2MG/ML, 2ML IVPush PRN ×2 (10:00→15:00)
[2017-09-25] MEDS ORDERED: LABETALOL 5MG/ML, 20ML IVPush PRN (10:00)
[2017-09-25] MEDS ORDERED: ACETAMINOPHEN 325 MG TABLET PO PRN ×2 (10:00→15:00)
[2017-09-25] MEDS ORDERED: hydrALAzine 20 MG/ML, 1ML IVPush PRN (10:00)
[2017-09-25] MEDS ORDERED: CEFAZOLIN PMX 2GM/50ML 50 ML IV SCH (10:00)
[2017-09-25 10:12] LABS: BASOPHILS # (AUTO) 0.03 x10^3/uL (0-0.1); BASOPHILS % (AUTO) 0 % (0-1); EOSINOPHILS # (AUTO) 0.03 x10^3/uL (0-0.4); EOSINOPHILS % (AUTO) 0 % (1-7); LYMPHOCYTES # (AUTO) 2.03 x10^3/uL (1-3.4); LYMPHOCYTES % (AUTO) 15 % (22-44); MD NO; MEAN CORPUSCULAR HEMOGLOBIN 28.5 pg (27.0-34.8); MEAN CORPUSCULAR HGB CONC 31.8 g/dL (32.4-35.8); MEAN CORPUSCULAR VOLUME 89.4 fL (80-100); MEAN PLATELET VOLUME 10.8 fL (7.4-10.4); MONOCYTES # (AUTO) 0.21 x10^3/uL (0.2-0.8); MONOCYTES % (AUTO) 2 % (2-9); NEUTROPHILS # (AUTO) 11.41 x10^3/uL (1.8-6.8); NEUTROPHILS % (AUTO) 83 % (42-75); PLATELET COUNT 119 x10^3/uL (130-400); RED CELL DISTRIBUTION WIDTH 17.8 % (9.6-15.2)
[2017-09-25 10:28] LABS: ANION GAP 7 mmol/L (5-15); CHLORIDE 104 mmol/L (98-107)
[2017-09-25 10:38] LABS: FREE T4 (FREE THYROXINE) 1.14 ng/dL (0.76-1.46)
[2017-09-25 10:56] LABS: MICROSCOPIC NOT IND
[2017-09-25 11:04] LABS: CULTURE INDICATED? NO
[2017-09-25] MEDS ORDERED: DIPH,PERTUSS(ACELL),TET VAC/PF 0.5 ML IM-VACC ONE ×2 (12:14→12:30)
[2017-09-25] MEDS: morphine SULFATE 10 MG/ML, 1ML IVPush PRN ×2 (12:50→22:33)
[2017-09-25] MEDS ORDERED: MIDAZOLAM 1 MG/ML, 2ML ONE (14:08)
[2017-09-25] MEDS ORDERED: FENTANYL PF 250 MCG/5ML ONE (14:09)
[2017-09-25] MEDS ORDERED: SUCCINYLCHOLINE 20 MG/ML, 10ML ONE (14:13)
[2017-09-25] MEDS ORDERED: HYDROCORTISONE 100 MG INJ. ONE (14:32)
[2017-09-25] MEDS ORDERED: PHENYLEPHRINE 10 MG/ML ONE (14:37)
[2017-09-25] MEDS ORDERED: MIDAZOLAM 1 MG/ML, 2ML IV PRN (15:00)
[2017-09-25] MEDS ORDERED: morphine SULFATE 10 MG/ML, 1ML IV PRN (15:00)
[2017-09-25] MEDS ORDERED: OXYcodone 5 MG/5 ML ORAL.SOL UDC PO PRN (15:00)
[2017-09-25] MEDS ORDERED: EPHEDRINE 50 MG/ML, 1ML IVPush PRN (15:00)
[2017-09-25] MEDS ORDERED: MEPERIDINE/PF 25MG/0.5ML IVPush PRN (15:00)
[2017-09-25] MEDS ORDERED: LABETALOL 5MG/ML, 20ML IV PRN (15:00)
[2017-09-25] MEDS ORDERED: ALBUTEROL/IPRATROPIUM 2.5MG/0.5MG, 3 ML NPPB PRN (15:00)
[2017-09-25] MEDS ORDERED: CEFAZOLIN 1,000 MG ONE (15:07)
[2017-09-25] MEDS ORDERED: EPHEDRINE 50 MG/ML, 1ML ONE (15:07)
[2017-09-25] MEDS ORDERED: DEXAMETHASONE 4 MG/ML, 1ML ONE (15:07)
[2017-09-25] MEDS ORDERED: NEOSPORIN OINT, 15GM ONE (15:20)
[2017-09-25] MEDS ORDERED: HYDROmorphone 1 MG/ML, 1ML ONE (16:06)
[2017-09-25] MEDS: Bimatoprost (Lumigan) 1 DROP LEFTEYE SCH (21:00)
[2017-09-25] MEDS: CEFAZOLIN PMX 1GM/50ML 50 ML IV SCH (21:48)
[2017-09-26 02:30] VITALS: BP 120/69
[2017-09-26] MEDS: morphine SULFATE 10 MG/ML, 1ML IVPush PRN ×4 (02:38→14:27)
[2017-09-26] MEDS: LEVOTHYROXINE 125 MCG TABLET PO SCH (05:37)
[2017-09-26] MEDS: CEFAZOLIN PMX 1GM/50ML 50 ML IV SCH ×3 (05:37→21:36)
[2017-09-26 06:04] LABS: ALBUMIN 2.7 g/dL (3.4-5.0); ANION GAP 6 mmol/L (5-15); BASOPHILS # (AUTO) 0.16 x10^3/uL (0-0.1); BASOPHILS % (AUTO) 1 % (0-1); CALCIUM 7.7 mg/dL (8.5-10.1); CHLORIDE 110 mmol/L (98-107); EOSINOPHILS % (AUTO) 0 % (1-7); LYMPHOCYTES # (AUTO) 1.47 x10^3/uL (1-3.4); LYMPHOCYTES % (AUTO) 11 % (22-44); MD NO; MEAN CORPUSCULAR HEMOGLOBIN 28.9 pg (27.0-34.8); MEAN CORPUSCULAR HGB CONC 32.9 g/dL (32.4-35.8); MEAN PLATELET VOLUME 10.4 fL (7.4-10.4); MONOCYTES # (AUTO) 0.83 x10^3/uL (0.2-0.8); MONOCYTES % (AUTO) 6 % (2-9); NEUTROPHILS # (AUTO) 10.58 x10^3/uL (1.8-6.8); NEUTROPHILS % (AUTO) 81 % (42-75); PLATELET COUNT 130 x10^3/uL (130-400); RED BLOOD COUNT 2.62 x10^6/uL (3.82-5.3)
[2017-09-26 06:16] LABS: ALANINE AMINOTRANSFERASE 13 U/L (12-78); ALKALINE PHOSPHATASE 82 U/L (45-117); BILIRUBIN,TOTAL 0.7 mg/dL (0.2-1.0); CREATININE 1.37 mg/dL (0.55-1.02); TOTAL PROTEIN 6.2 g/dL (6.4-8.2)
[2017-09-26] MEDS: SODIUM CHLORIDE 0.9% 1,000 ML IV SCH ×2 (06:30→14:26)
[2017-09-26 07:30] VITALS: BP 107/62
[2017-09-26 08:27] VITALS: BP 126/71
[2017-09-26] MEDS: ONDANSETRON ODT 4 MG PO PRN (08:32)
[2017-09-26] MEDS: SPIRONOLACTONE 25 MG TABLET PO SCH (09:46)
[2017-09-26] MEDS: BACLOFEN 10 MG TABLET PO SCH ×2 (09:47→21:37)
[2017-09-26 11:50] VITALS: BP 111/67
[2017-09-26 14:42] VITALS: BP 114/72
[2017-09-26 19:00] VITALS: BP 102/63
[2017-09-26] MEDS: Bimatoprost (Lumigan) 1 DROP LEFTEYE SCH (21:00)
[2017-09-26] MEDS ORDERED: DIPHENHYDRAMINE 25 MG CAPSULE PO PRN (23:00)
[2017-09-27 00:45] VITALS: BP 116/56
[2017-09-27] MEDS: morphine SULFATE 10 MG/ML, 1ML IVPush PRN (01:06)
[2017-09-27] MEDS: SODIUM CHLORIDE 0.9% 1,000 ML IV SCH ×2 (01:07→06:30)
[2017-09-27 05:12] LABS: ANION GAP 7 mmol/L (5-15); CALCIUM 8.3 mg/dL (8.5-10.1); CHLORIDE 104 mmol/L (98-107); CREATININE 1.14 mg/dL (0.55-1.02)
[2017-09-27] MEDS: CEFAZOLIN PMX 1GM/50ML 50 ML IV SCH (05:12)
[2017-09-27 05:27] LABS: BASOPHILS # (AUTO) 0.34 x10^3/uL (0-0.1); BASOPHILS % (AUTO) 3 % (0-1); EOSINOPHILS # (AUTO) 0.12 x10^3/uL (0-0.4); EOSINOPHILS % (AUTO) 1 % (1-7); LYMPHOCYTES # (AUTO) 1.24 x10^3/uL (1-3.4); LYMPHOCYTES % (AUTO) 12 % (22-44); MD SCAN; MEAN CORPUSCULAR HEMOGLOBIN 29.5 pg (27.0-34.8); MEAN CORPUSCULAR HGB CONC 34.3 g/dL (32.4-35.8); MEAN CORPUSCULAR VOLUME 86.2 fL (80-100); MEAN PLATELET VOLUME 10.1 fL (7.4-10.4); MONOCYTES # (AUTO) 0.63 x10^3/uL (0.2-0.8); MONOCYTES % (AUTO) 6 % (2-9); NEUTROPHILS # (AUTO) 8.21 x10^3/uL (1.8-6.8); NEUTROPHILS % (AUTO) 78 % (42-75); PLATELET COUNT 109 x10^3/uL (130-400); RED BLOOD COUNT 2.27 x10^6/uL (3.82-5.3); RED CELL DISTRIBUTION WIDTH 17.6 % (9.6-15.2)
[2017-09-27] MEDS: LEVOTHYROXINE 125 MCG TABLET PO SCH (05:32)
[2017-09-27] MEDS: ONDANSETRON ODT 4 MG PO PRN ×2 (06:08→11:52)
[2017-09-27 08:00] VITALS: BP 172/79
[2017-09-27 08:13] LABS: INTERNATIONAL NORMALIZED RATIO 1.27 (0.93-1.1)
[2017-09-27] MEDS ORDERED: METHYLNALTREXONE 12 MG/0.6 ML SQ ONE (09:00)
[2017-09-27] MEDS ORDERED: morphine SULFATE ORAL.CONC 20 MG/ML PO PRN ×2 (09:00→18:30)
[2017-09-27] MEDS ORDERED: LORazepam 2 MG/ML, 1ML IVPush PRN (09:30)
[2017-09-27] MEDS: BACLOFEN 10 MG TABLET PO SCH ×2 (11:52→21:10)
[2017-09-27] MEDS: SPIRONOLACTONE 25 MG TABLET PO SCH (11:53)
[2017-09-27] MEDS: SENNA/DOCUSATE TABLET PO SCH ×2 (11:53→21:10)
[2017-09-27] MEDS: POLYETHYLENE GLYCOL 17 GM PACKET PO SCH (11:54)
[2017-09-27] MEDS ORDERED: LORazepam 1MG TABLET PO PRN (12:00)
[2017-09-27 14:00] VITALS: BP 114/75
[2017-09-27 15:02] LABS: MICROSCOPIC INDICATED
[2017-09-27] MEDS: CEPHALEXIN 500 MG CAPSULE PO SCH ×2 (15:59→21:10)
[2017-09-27 19:10] VITALS: BP 128/80
[2017-09-27] MEDS: Bimatoprost (Lumigan) 1 DROP LEFTEYE SCH (21:00)
[2017-09-28 01:22] VITALS: BP 135/72
[2017-09-28 05:28] LABS: ALBUMIN 2.4 g/dL (3.4-5.0); ANION GAP 7 mmol/L (5-15); CALCIUM 8.1 mg/dL (8.5-10.1); CHLORIDE 104 mmol/L (98-107)
[2017-09-28 05:33] LABS: % IRON SATURATION 6 % (20-55); ALKALINE PHOSPHATASE 83 U/L (45-117); BILIRUBIN,TOTAL 0.5 mg/dL (0.2-1.0); CREATININE 1.01 mg/dL (0.55-1.02); IRON LEVEL 17 mcg/dL (50-170); TOTAL IRON BINDING CAPACITY 292 mcg/dL (250-450); TOTAL PROTEIN 5.9 g/dL (6.4-8.2)
[2017-09-28 05:36] LABS: MEAN CORPUSCULAR HEMOGLOBIN 28.3 pg (27.0-34.8); MEAN CORPUSCULAR HGB CONC 32.3 g/dL (32.4-35.8); MEAN CORPUSCULAR VOLUME 87.8 fL (80-100); MEAN PLATELET VOLUME 9.9 fL (7.4-10.4); PLATELET COUNT 121 x10^3/uL (130-400); RED BLOOD COUNT 2.23 x10^6/uL (3.82-5.3); RED CELL DISTRIBUTION WIDTH 17.9 % (9.6-15.2)
[2017-09-28 05:45] LABS: ALANINE AMINOTRANSFERASE 12 U/L (12-78)
[2017-09-28] MEDS: CEPHALEXIN 500 MG CAPSULE PO SCH ×4 (06:16→20:50)
[2017-09-28] MEDS: LEVOTHYROXINE 125 MCG TABLET PO SCH (06:16)
[2017-09-28 06:21] LABS: BASOPHILS # (AUTO) 0.01 x10^3/uL (0-0.1); BASOPHILS % (AUTO) 0 % (0-1); EOSINOPHILS # (AUTO) 0.04 x10^3/uL (0-0.4); EOSINOPHILS % (AUTO) 1 % (1-7); LYMPHOCYTES # (AUTO) 0.86 x10^3/uL (1-3.4); LYMPHOCYTES % (AUTO) 11 % (22-44); MD SCAN; MONOCYTES # (AUTO) 0.28 x10^3/uL (0.2-0.8); MONOCYTES % (AUTO) 3 % (2-9); NEUTROPHILS # (AUTO) 7.07 x10^3/uL (1.8-6.8); NEUTROPHILS % (AUTO) 86 % (42-75)
[2017-09-28 06:37] VITALS: BP 167/76
[2017-09-28] MEDS: BACLOFEN 10 MG TABLET PO SCH ×2 (08:42→20:50)
[2017-09-28] MEDS: SENNA/DOCUSATE TABLET PO SCH ×2 (08:42→20:49)
[2017-09-28] MEDS: POLYETHYLENE GLYCOL 17 GM PACKET PO SCH (08:43)
[2017-09-28] MEDS: SPIRONOLACTONE 25 MG TABLET PO SCH (08:43)
[2017-09-28 13:51] VITALS: BP 173/94
[2017-09-28] MEDS: ONDANSETRON ODT 4 MG PO PRN ×2 (13:52→20:50)
[2017-09-28 15:14] VITALS: BP 183/100
[2017-09-28] MEDS: FOLIC ACID 1 MG TABLET PO SCH (16:07)
[2017-09-28] MEDS: FERROUS SULFATE 325 MG TABLET PO SCH (16:07)
[2017-09-28 16:22] LABS: ANION GAP 7 mmol/L (5-15); CALCIUM 8.7 mg/dL (8.5-10.1); CHLORIDE 103 mmol/L (98-107)
[2017-09-28] MEDS ORDERED: PROMETHAZINE 12.5 MG SUPP PR PRN (16:30)
[2017-09-28] MEDS: Bimatoprost (Lumigan) 1 DROP LEFTEYE SCH (20:50)
[2017-09-28] MEDS ORDERED: AMITRIPTYLINE 10 MG TABLET PO SCH (21:00)
[2017-09-28] MEDS: morphine SULFATE ORAL.CONC 20 MG/ML PO PRN (21:12)
[2017-09-29] MEDS: morphine SULFATE ORAL.CONC 20 MG/ML PO PRN ×4 (01:55→11:15)
[2017-09-29] MEDS: ONDANSETRON ODT 4 MG PO PRN (03:38)
[2017-09-29] MEDS: CEPHALEXIN 500 MG CAPSULE PO SCH ×2 (06:15→11:16)
[2017-09-29] MEDS: LEVOTHYROXINE 125 MCG TABLET PO SCH (06:16)
[2017-09-29] MEDS: POLYETHYLENE GLYCOL 17 GM PACKET PO SCH (07:43)
[2017-09-29] MEDS: SENNA/DOCUSATE TABLET PO SCH (07:44)
[2017-09-29] MEDS ORDERED: SCOPOLAMINE PATCH, 1.5MG PATCH.TD72 TD ONE (08:00)
[2017-09-29] MEDS ORDERED: LORazepam INTENSOL 2 MG/ML SL PRN (08:00)
[2017-09-29] MEDS: FERROUS SULFATE 325 MG TABLET PO SCH (08:00)
[2017-09-29] MEDS ORDERED: morphine SULFATE ORAL.CONC 20 MG/ML SL PRN (08:00)
[2017-09-29] MEDS: FOLIC ACID 1 MG TABLET PO SCH (08:26)
[2017-09-29 08:40] VITALS: BP 107/60
[2017-09-29] MEDS: SPIRONOLACTONE 25 MG TABLET PO SCH ×2 (09:00→11:16)
[2017-09-29] MEDS: BACLOFEN 10 MG TABLET PO SCH (11:16)
== END 2017-09-30 01:45 | disposition expired | DRG 492 ==
LOC: ED 08:56 → EDIP 09:33 → 5SO 18:58 → 4NOR 09-26 18:39
PROVIDERS: ADMIT Internal Medicine; ATTEND Internal Medicine
PROC: 0QSH04Z Reposition Left Tibia with Internal Fixation Device, Open Approach (ICD-10-PCS; principal; 2017-09-25 13:45)
DX: M97.22XA Periprosthetic fracture around internal prosthetic left ankle joint, initial encounter (principal); R65.21 Severe sepsis with septic shock; A41.9 Sepsis, unspecified organism; N17.9 Acute kidney failure, unspecified; I50.33 Acute on chronic diastolic (congestive) heart failure; E46 Unspecified protein-calorie malnutrition; D62 Acute posthemorrhagic anemia; D68.9 Coagulation defect, unspecified; F11.20 Opioid dependence, uncomplicated; D89.9 Disorder involving the immune mechanism, unspecified; I48.91 Unspecified atrial fibrillation; S82.842C Displaced bimalleolar fracture of left lower leg, initial encounter for open fracture type IIIA, IIIB, or IIIC; I11.0 Hypertensive heart disease with heart failure; E03.9 Hypothyroidism, unspecified; E66.9 Obesity, unspecified; F41.1 Generalized anxiety disorder; H40.9 Unspecified glaucoma; I25.10 Atherosclerotic heart disease of native coronary artery without angina pectoris; I27.20 Pulmonary hypertension, unspecified; J44.9 Chronic obstructive pulmonary disease, unspecified; K21.9 Gastro-esophageal reflux disease without esophagitis; K56.41 Fecal impaction; M10.9 Gout, unspecified; G89.29 Other chronic pain; M54.9 Dorsalgia, unspecified; W18.39XA Other fall on same level, initial encounter; M19.90 Unspecified osteoarthritis, unspecified site; Y84.8 Other medical procedures as the cause of abnormal reaction of the patient, or of later complication, without mention of misadventure at the time of the procedure; T38.0X5A Adverse effect of glucocorticoids and synthetic analogues, initial encounter; Z79.01 Long term (current) use of anticoagulants; Z79.52 Long term (current) use of systemic steroids; Z79.899 Other long term (current) drug therapy; Z80.0 Family history of malignant neoplasm of digestive organs; Z82.49 Family history of ischemic heart disease and other diseases of the circulatory system; Z85.820 Personal history of malignant melanoma of skin; Z85.3 Personal history of malignant neoplasm of breast; Z90.13 Acquired absence of bilateral breasts and nipples; Z90.710 Acquired absence of both cervix and uterus; Z90.49 Acquired absence of other specified parts of digestive tract; Z88.8 Allergy status to other drugs, medicaments and biological substances; Y93.89 Activity, other specified; Y92.89 Other specified places as the place of occurrence of the external cause; Y99.8 Other external cause status; Z68.34 Body mass index [BMI] 34.0-34.9, adult; Z66 Do not resuscitate
CPT/HCPCS: 27752; 36415; 51702; 70450; 71010; 76000; 80048; 80053; 81001; 81003; 82140; 82962; 83540; 83550; 83605; 83735; 84100; 84145; 84439; 84443; 85025; 85610; 85730; 86850; 86900; 87040; 90471; 90715; 93005; 96365; 96366; 96375; 96376; C1713; J0690; J1100; J1170; J2250; J2405; J2704; J3010; Q0162; J0330; J1720; J2270; J2370; J7030; J7512